=== PATIENT | male | born 1995 ===

== ENCOUNTER 2017-05-27 22:08 | Emergency (ER) | payer SELFPAY ==
[2017-05-28] MEDS ORDERED: DiphenhydrAMINE 50 mg/ml Inj IVP STA (00:21)
[2017-05-28] MEDS ORDERED: cefTRIAXone IV 1 gm in Dextros 50 ML IV STA (00:21)
[2017-05-28] MEDS ORDERED: cefTRIAXone IV 1 gm in Dextros 50 ML IVPB ONE (00:34)
[2017-05-28] MEDS ORDERED: DiphenhydrAMINE 50 mg/ml Inj ONE (00:34)
[2017-05-28 00:37] LABS: BASO # 0.1 K/uL (0.0-0.2); BASO % 0.4 % (0.0-2.0); EOS # 0.2 K/uL (0.0-0.7); LYMPH # 1.6 K/uL (1.0-4.3); LYMPH % 11.2 % (20.0-40.0); MEAN CELL VOLUME 85.5 fL (80.0-94.0); MEAN CORPUSCULAR HEMOGLOBIN 28.7 pg (27.0-31.0); MEAN CORPUSCULAR HGB CONC 33.5 g/dL (33.0-37.0); MEAN PLATELET VOLUME 7.8 fL (7.2-11.7); MONO # 0.8 K/uL (0.0-0.8); MONO % 5.2 % (0.0-10.0); NEUT % 82.2 % (50.0-75.0); RBC 4.9 Mil/uL (4.40-5.90); RED CELL DISTRIBUTION WIDTH 13.2 % (11.5-14.5); WHITE BLOOD COUNT 14.6 K/uL (4.8-10.8)
[2017-05-28 00:47] LABS: ALBUMIN 4.1 g/dL (3.5-5.0)
[2017-05-28 00:49] LABS: GFR AFRICAN-AMERICAN > 60; GFR NON-AFRICAN AMERICAN > 60
[2017-05-28 00:50] LABS: ALT/SGPT 11 U/L (21-72); AST/SGOT 26 U/L (17-59); BLOOD UREA NITROGEN 12 mg/dL (9-20)
--- NOTE | 2017-05-28 01:37 | C.PDOC ---
History Of Present Illness 21 year old male presents to the ED with complaints of a worsening diffuse, itchy rash in his face for three weeks. Patient states he saw his doctor two weeks and was told it was acne. He was given antibiotics PO but patient can not recall the name of the antibiotic. Patient notes rash has worsened and is itchier. He denies fever , pain, cough, runny nose, sore throat, SOB, eye pain. Time Seen by Provider: 05/27/17 23:20 Chief Complaint (Nursing): Abnormal Skin Integrity History Per: Patient History/Exam Limitations: no limitations Onset/Duration Of Symptoms: Persistent (3 weeks ) Current Symptoms Are (Timing): Worse Quality Of Symptoms: Painful, Itching. denies: Swollen, Draining Severity: Moderate Past Medical History Reviewed: Historical Data, Nursing Documentation, Vital Signs Vital Signs: Last Vital Signs Temp 98.7 F 05/28/17 01:48 Pulse 76 05/28/17 01:48 Resp 18 05/28/17 01:48 BP 106/71 05/28/17 01:48 Pulse Ox 99 05/28/17 01:48 - Medical History PMH: No Chronic Diseases Family History: States: No Known Family Hx - Social History Hx Alcohol Use: No Hx Substance Use: No Review Of Systems Except As Marked, All Systems Reviewed And Found Negative. Constitutional: Negative for: Fever, Chills Cardiovascular: Negative for: Chest Pain, Palpitations Respiratory: Negative for: Cough, Shortness of Breath Skin: Positive for: Rash (itchy rash diffusely to the face ) Physical Exam - Physical Exam Appears: Well, Non-toxic, No Acute Distress Skin: Warm, Dry, Other (Diffuse pustules with overlying crusting, honey cover lesions (impetigo appearance) on the face and right shoulder. ) Head: Normacephalic Eye(s): bilateral: Normal Inspection, PERRL, EOMI Ear(s): Bilateral: Normal Nose: Normal Oral Mucosa: Moist Throat: Normal, No Erythema, No Exudate Neck: Supple Cardiovascular: Rhythm Regular Respiratory: Normal Breath Sounds, No Rales, No Rhonchi, No Wheezing Neurological/Psych: Oriented x3 ED Course And Treatment - Laboratory Results Result Diagrams: 05/28/17 00:34 05/28/17 00:34 O2 Sat by Pulse Oximetry: 99 (RA) Pulse Ox Interpretation: Normal Progress Note: Blood work ordered and reviewed. IV rocephin, IV benadryl and topical mupirocin ordered. Reevaluation Time: 01:35 Reassessment Condition: Improved (On reassessment, patient reports improvement of itching, appears comfortable. He was given Rxs for Bactrim, Mupirocin and Benadryl and instructed to follow up with dermatology within 1 week, or medical clinic/PMD in 1-2 days. He understands he should return to ED if symptoms worsen.) Disposition Counseled Patient/Family Regarding: Studies Performed, Diagnosis, Need For Followup, Rx Given - Disposition Referrals: [facility] [Outside] Disposition: HOME/ ROUTINE Disposition Time: 01:35 Condition: STABLE Instructions: Impetigo (ED) Print Language: DIVEHI - POA Present On Arrival: None - Clinical Impression Clinical Impression: Impetigo - Scribe Statement The provider has reviewed the documentation as recorded by the Scribsherif Miranda All medical record entries made by the Odetteibsherif were at my direction and personally dictated by me. I have reviewed the chart and agree that the record accurately reflects my personal performance of the history, physical exam, medical decision making, and the department course for this patient. I have also personally directed, reviewed, and agree with the discharge instructions and disposition.
[2017-05-28 01:49] VITALS: BP 106/71; PULSE 76; RESP 18; TEMP 98.7; O2SAT 99
== END 2017-05-28 01:50 | disposition home or self-care (01) ==
LOC: C.ER 22:08
DX: L01.00 Impetigo, unspecified (principal)
CPT/HCPCS: 80053; 85025; 87040; 96374; 99284; J0696; J1200

== ENCOUNTER 2017-05-30 22:19 | Emergency (ER) | payer SELFPAY ==
[2017-05-30 22:40] VITALS: BP 122/70; PULSE 98; RESP 18; TEMP 98.4; O2SAT 98
--- NOTE | 2017-05-31 00:08 | C.PDOC ---
History Of Present Illness 21 year old male presents to the ED with complaints of worsening facial acne that has begun to spread over his upper lip. Patient states he has been seen by multiple dermatologists and given different treatments. He also notes he came to [facility] ED two days prior, the old rash is better with the use of bactrim and keflex but spreading which prompted visit. Patient denies fever or any other physical complaints at this time. Time Seen by Provider: 05/30/17 23:08 History Per: Patient History/Exam Limitations: no limitations Onset/Duration Of Symptoms: Days (patient states original acne rash began three weeks, spreading is recent within the last two days ) Current Symptoms Are (Timing): Still Present Reports Recently: Seen In ED, Treated By A Physician Recent travel outside of the [place]: No Past Medical History Reviewed: Historical Data, Nursing Documentation, Vital Signs Vital Signs: Last Vital Signs Temp 98.4 F 05/30/17 22:35 Pulse 98 H 05/30/17 22:35 Resp 18 05/30/17 22:35 BP 122/70 05/30/17 22:35 Pulse Ox 98 05/31/17 05:33 Family History: States: Unknown Family Hx - Social History Hx Alcohol Use: No Hx Substance Use: No Review Of Systems Constitutional: Negative for: Fever, Chills Cardiovascular: Negative for: Chest Pain, Palpitations Respiratory: Negative for: Cough, Shortness of Breath Gastrointestinal: Negative for: Nausea, Vomiting, Abdominal Pain, Diarrhea Skin: Positive for: Other (Face acne rash ) Physical Exam - Physical Exam Appears: Non-toxic, No Acute Distress Skin: Warm, Dry, Other (moderate scabby dry scaly rash with some crusty pustules diffusely to face ) Head: Atraumatic Eye(s): bilateral: Normal Inspection, PERRL, EOMI Oral Mucosa: Moist, No Other (lesions) Neck: Normal, Supple Chest: Symmetrical, No Deformity Cardiovascular: Rhythm Regular Respiratory: Normal Breath Sounds, No Rales, No Rhonchi, No Wheezing Neurological/Psych: Oriented x3 ED Course And Treatment O2 Sat by Pulse Oximetry: 98 (room air ) Pulse Ox Interpretation: Normal Progress Note: Pt advised to d/c keflex and to start doxycycline. Advised to wash and clean face with cool water and to apply mipurocin cream Disposition Counseled Patient/Family Regarding: Diagnosis, Need For Followup, Rx Given - Disposition Referrals: [facility] [Outside] Disposition: HOME/ ROUTINE Disposition Time: 00:05 Condition: STABLE Additional Instructions: D/C PO keflex Take doxyxycline as prescribed Continue bactrim and topical cream WAsh face with soft cloth and water Follow up in [facility] Return to ER if worse Prescriptions: Doxycycline Hyclate 100 mg PO BID #20 capsule Instructions: Acne (ED) - Clinical Impression Clinical Impression: Acne vulgaris - Scribe Statement The provider has reviewed the documentation as recorded by the Scribsherif Miranda All medical record entries made by the Odetteibsherif were at my direction and personally dictated by me. I have reviewed the chart and agree that the record accurately reflects my personal performance of the history, physical exam, medical decision making, and the department course for this patient. I have also personally directed, reviewed, and agree with the discharge instructions and disposition.
== END 2017-05-31 00:14 | disposition home or self-care (01) ==
LOC: C.ER 22:19
DX: L70.0 Acne vulgaris (principal)

== ENCOUNTER 2017-06-03 22:02 | Emergency (ER) | payer SELFPAY ==
[2017-06-03 22:13] VITALS: BP 124/76; PULSE 122; RESP 20; TEMP 98.3; O2SAT 99
--- NOTE | 2017-06-03 23:27 | C.PDOC ---
History Of Present Illness A 22 y/o M with a Hx of acne, c/o rash to the face that has been going on for a while now. Pt was seen several times by his dehydrator tender and twice by in the ER for the same complaint. Pt notes the rash improved, but it is still not better. Pt was [place] and asking for prescription of the same medication. Denies fever, chills, nausea , vomiting, diarrhea, sick contact, recent travel, or any other complaints. Time Seen by Provider: 06/03/17 22:44 Chief Complaint (Nursing): Abnormal Skin Integrity History Per: Patient History/Exam Limitations: no limitations Onset/Duration Of Symptoms: Days Current Symptoms Are (Timing): Still Present Severity: Mild Recent travel outside of the [place]: No Additional History Per: Patient Past Medical History Reviewed: Historical Data, Nursing Documentation, Vital Signs Vital Signs: Last Vital Signs Temp 98.3 F 06/03/17 22:09 Pulse 122 H 06/03/17 22:09 Resp 20 06/03/17 22:09 BP 124/76 06/03/17 22:09 Pulse Ox 99 06/04/17 03:01 Family History: States: Unknown Family Hx - Social History Hx Alcohol Use: No Hx Substance Use: No - Immunization History Hx Tetanus Toxoid Vaccination: No Hx Influenza Vaccination: No Hx Pneumococcal Vaccination: No Review Of Systems Except As Marked, All Systems Reviewed And Found Negative. Constitutional: Negative for: Fever, Chills Gastrointestinal: Negative for: Nausea, Vomiting, Diarrhea Skin: Positive for: Rash (To the face) Physical Exam - Physical Exam Appears: Non-toxic, No Acute Distress Skin: Warm, Dry, Rash (Diffuse, scabby rash to the beardline with minimal macular palpular rash. Erythema to the remainder of the face.) Head: Atraumatic, Normacephalic Eye(s): bilateral: Normal Inspection Oral Mucosa: Moist Throat: Normal, No Exudate Neurological/Psych: Oriented x3, Normal Speech, Normal Cognition ED Course And Treatment O2 Sat by Pulse Oximetry: 99 (RA) Pulse Ox Interpretation: Normal Progress Note: Impression: A 22 y/o M with a Hx of acne, c/o rash to the face that has been going on for a while now. Plans: Reassess. Pt was seen by Dr. Lee at bed side and agree to give pt Tretinoin cream. Pt was instructed to continue doxycycline and instructed to follow up with dehydrator tender for further evaluation. Disposition - Disposition Referrals: [facility] at [facility] [Outside] Disposition: HOME/ ROUTINE Disposition Time: 23:22 Condition: STABLE Additional Instructions: PLease wash face with non scented soap Follow up with PMD or dermatology Return to ER if worse Prescriptions: Tretinoin [Retin-A] 0.05 cre TP HS #30 g Instructions: Acne (ED) - Clinical Impression Clinical Impression: Acne vulgaris - Scribe Statement The provider has reviewed the documentation as recorded by the Scribe Rowdy hernandez All medical record entries made by the Scribe were at my direction and personally dictated by me. I have reviewed the chart and agree that the record accurately reflects my personal performance of the history, physical exam, medical decision making, and the department course for this patient. I have also personally directed, reviewed, and agree with the discharge instructions and disposition.
== END 2017-06-03 23:41 | disposition home or self-care (01) ==
LOC: C.ER 22:02
DX: L70.0 Acne vulgaris (principal)